=== PATIENT | female | born 1995 | race African-American/Black ===

== ENCOUNTER 2017-11-24 12:57 | Emergency (ER) | payer MEDICAID ==
[~2017-11-24] VITALS: Ht 157.5 cm; Wt 68.0 kg
[2017-11-24] MEDS ORDERED: ACETAMINOPHEN 500 MG TABLET PO ONE (14:15)
[2017-11-24 14:50] LABS: APPEARANCE,URINE CLOUDY (CLEAR); BILIRUBIN,URINE NEGATIVE (NEGATIVE); GLUCOSE, URINE (UA) NEGATIVE (NEGATIVE); KETONES,URINE 15 mg/dL (NEGATIVE); LEUKOCYTE ESTERASE ,URINE SMALL (NEGATIVE); NITRATE,URINE NEGATIVE (NEGATIVE); OCCULT BLOOD,URINE LARGE (NEGATIVE); PH,URINE 6.5 (5.0-8.0); PROTEIN,URINE POS 1+ (NEGATIVE); UROBILINOGEN,URINE 0.2 mg/dL (<=1.0)
[2017-11-24 14:59] LABS: BACTERIA,URINE Few /HPF (None Seen); RBC,URINE >100 /HPF (0-2)
[2017-11-24 15:00] LABS: SQUAMOUS EPITHELIAL CELL,UR Moderate /LPF (None Seen)
[2017-11-24 15:03] LABS: MUCUS,URINE Few LPF (None Seen)
[2017-11-24 15:57] LABS: INFLUENZA TYPE A NEGATIVE FOR TYPE A (NEGATIVE); INFLUENZA TYPE B POSITIVE FOR TYPE B (NEGATIVE)
[2017-11-24 16:11] VITALS: BP 117/76
[2017-11-24] MEDS ORDERED: IBUPROFEN 800 MG TABLET PO ONE (16:15)
== END 2017-11-24 16:38 | disposition home or self-care (01) ==
LOC: EMS 12:59
DX: J11.1 Influenza due to unidentified influenza virus with other respiratory manifestations (principal); R04.0 Epistaxis
CPT/HCPCS: 81025; 87804; 99284